=== PATIENT | male | born 1970 | race Caucasian/White ===

== ENCOUNTER 2018-01-27 06:48 | Day surgery (SDC) | payer MEDICARE ==
[~2018-01-27] VITALS: Ht 175.3 cm; Wt 81.6 kg
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
[~2018-01-27 06:48] MED LIST: DEPAKOTE250 MG PO; LIPITOR10 MG PO; PROPRANOLOL HCL20 MG PO
[2018-01-27 07:23] VITALS: BP 113/72; Ht 175.3 cm; Wt 81.6 kg
[2018-02-05 17:12] LABS: CALCULI - CA OXALATE MONOHYDR 35 % (()); CALCULI - CALCIUM PHOSPHATE 63 % (()); CALCULI - COLOR Brown (()); CALCULI - SIZE 7x7x2 mm (()); CALCULI - WEIGHT 86.6 mg (())
== END 2018-01-27 11:10 | disposition home or self-care (01) ==
LOC: D.OPS 06:48 → D.PAN 09:00 → D.OPS 09:00 → D.PAN 12:30 → D.OPS 12:30
PROVIDERS: Urology
DX: N35.9 Urethral stricture, unspecified (principal); N21.0 Calculus in bladder; Z01.812 Encounter for preprocedural laboratory examination

== ENCOUNTER 2021-01-07 14:05 | Day surgery (SDC) | payer MEDICARE ==
[~2021-01-07] VITALS: Ht 175.3 cm; Wt 65.9 kg
--- NOTE | ~2021-01-07 | HEMODYNAMI ---
PATIENT:KANDACE GARCIA MEDICAL RECORD: [id number] : 70 LOCATION:[facility] ADMISSION DATE: 01/07/21 Generatedon:116:05 Patient name: KANDACE GARCIA Patient #: [id number] SSN: : Date of study: 01/07/2021 Page: Of Hemodynamic Procedure Report Patient Data Patient Demographics Procedure consent was obtained First Name: KANDACE Gender: Male Last Name: JOSE : 1970 Middle Initial: ALEX Age: 50 year(s) Patient #: [id number] Race: Unknown Additional ID: [id number] Contact details [address]: [address] [place] [address] [place] State: [place] City: [place] Zip code: [address] Past Medical History Allergies: No known allergies Admission Admission Data Admission Date: 01/07/2021 Admission Time: 14:05 Procedure Procedure Types Cath Procedure Peripheral Cath Diagnostic Procedure Nephro Nephrostomy Tubes Procedure Description Procedure Date Procedure Date: 01/07/2021 Procedure Start Time: 15:42 Procedure Staff Name Function Ryan Kramer MD Performing Physician Katelynn Bill RT Cook House Supervisor Bigg Larsen RT Scrub Letty Chew RN Nurse Procedure Data Cath Procedure Fluoroscopy Diagnostic fluoroscopy Total fluoroscopy Time: 4.2 time: 4.2 min min Diagnostic fluoroscopy Total fluoroscopy dose: 42 dose: 42 mGy mGy Contrast Material Contrast Material Type Amount (ml) Isovue 300 15 Diagnostic catheters Device Type Used For End Catheter Placement Merit Impress KA 2 5Fr 40CM catheter ([id number]) Procedure Medications Medication Administration Route Dosage Fentanyl I.V. 100 mcg Lidocaine 1% added to field 20 Heparin Flush Bag added to field 2 bags (1000units/500ml NS) unlisted medication 1 Hemodynamics Rest Heart Rate: 127 (bpm) Snapshots Pre Cath Intra NCS Post Cath Vital Signs Time Heart Resp SPO2 etCO2 NIBP Rhythm Pain Sedation Rate (ipm) (%) (mmHg) (mmHg) Status Level (bpm) 15:38:39 126 30 0 115/53(90) NSR 0 (11) 10(A) , No pain 15:42:41 126 33 0 108/77(86) NSR 0 (11) 10(A) , No pain 15:47:40 127 16 100 15.6 Measuring NSR 0 (11) 10(A) , No pain 15:47:44 128 16 100 17.1 104/65(72) NSR 0 (11) 10(A) , No pain 15:51:52 123 32 100 20.1 102/68(83) NSR 0 (11) 10(A) , No pain 15:56:00 125 30 100 21.6 98/62(74) NSR 0 (11) 10(A) , No pain 15:59:59 116 27 17.1 103/64(77) NSR 0 (11) 10(A) , No pain 16:03:59 126 33 0 110/72(91) NSR 0 (11) 10(A) , No pain Medications Time Medication Route Dose Verified Delivered Reason Notes Effe ctiveness by by 15:49:00 Fentanyl I.V. 100 Ryan Saenz for back mcg Jeevan Kramer RN pain MD 15:49:15 Lidocaine 1% added 20ml Ryan Davis for local to vial Nia Kramer MD anesthetic field 15:49:29 Heparin Flush added 2 Ryan Davis used for Bag to bags Nia Kramer MD procedure (1000units/500ml field NS) 15:59:07 cefepime ivpb 1gm Ryan Saenz Per Jeevan Kramer RN physician MD Procedure Log Time Note 14:52:35 KIT, INTRODUCER ACCUSTICK II W/C ([id number]) opened to sterile field. 14:52:41 Use device set IR Diagnostic 14:52:43 Tegaderm 4 x 4 (1626W) opened to sterile field. 14:52:44 Sterile Angiographic Pack opened to sterile field. 14:52:45 Bag Decanter () opened to sterile field. 14:52:51 - 15::40 Time tracking: Regular hours (M-F 7:00 - 5:00) 15::47 Plan of Care:Hemodynamics will remain stable., Cardiac rhythm will remain stable., Comfort level will be maintained., Respiratory function will remain adequate., Patient/ family verbilizes understanding of procedure., Procedure tolerated without complication., Recovers from procedure without complications.. 15:29:02 Patient received from Outpatients to IR Alert and oriented. Tansferred to table in Prone position. 15:29:06 Signed procedure consent form obtained from patient. 15:29:13 H&P Date Dictated: 01/07/2021 Emergent; H&P N/A, H&P Addendum completed by physician on day of procedure. (MUST COMPLETE FOR ALL OUTPATIENTS). 15:29:16 Pre-procedure instructions explained to patient. 15:29:16 Pre-op teaching completed and patient verbalized understanding. 15:29:18 Family unavailable. 15:29:21 Patient NPO since Midnight. 15:29:30 Patient allergic to No known allergies 15:29:38 Is the patient allergic to Iodine/contrast media? No. 15:29:42 Is patient on blood thinner?No 15:29:44 Patient diabetic? No. 15:29:54 - 15:29:55 ----Pre-sedation anethsthesia assessment.---- 15:29:58 Previous problem with sedation/anesthesia? No ? 15:30:03 Snore? Yes 15:30:05 Sleep apnea? No 15:30:07 Deviated septum? No 15:30:09 Opens mouth fully? Yes 15:30:11 Sticks out tongue? Yes 15:30:19 Airway obstruction? No ? 15:30:24 Dentures? No ? 15:30:26 - 15::39 Right Renal was prepped with chlora-prep and draped in sterile fashion. 15:31:40 Alarms reviewed by Jeancarlos Fuentes 15:31:45 - 15:36:29 GLIDE CATHETER 5FR ANGLED 65cm (CG507) opened to sterile field. 15:37:22 Baseline sample Acquired. 15:37:30 Vital chart was started 15:41:17 Physician arrived 15:41:18 --------ALL STOP TIME OUT------ 15:41:19 Final Timeout: patient, procedure, and site verified with staff and physician. All members of the team are in agreement. 15:42:16 Fire Safety Assessment: A--An alcohol-based skin anteseptic being used preoperatively., C--Open oxygen or nitrous oxide is being used. 15:42:23 Procedure started. 15:42:23 Full Disclosure recording started 15:42:39 Local anesthetic to Right Renal area with Lidocaine 1% by Ryan Kramer MD.INITIAL ACCESS ONLY 15:42:54 GLIDE WIRE ANGLE 180cm (GC7696) opened to sterile field. 15:43:03 Micropuncture VSI 4FR kit opened to sterile field. 15:44:57 BENTSON 145cm wire ([id number]) opened to sterile field. 15:46:42 A Merit Impress KA 2 5Fr 40CM catheter ([id number]) was advanced over the wire and used for . 15:46:44 GLIDE WIRE Angled Super Stiff 180cm (RT1549) opened to sterile field. 15:47:37 Baseline sample Acquired. 15:49:00 Fentanyl 100 mcg I.V. was administered by Letty Chew RN; for back pain; Verbal order read back and verified. 15:49:15 Lidocaine 1% 20ml vial added to field was administered by Ryan Kramer MD; for local anesthetic; Verbal order read back and verified. 15:49:29 Heparin Flush Bag (1000units/500ml NS) 2 bags added to field was administered by Ryan Kramer MD; used for procedure; Verbal order read back and verified. 15:53:55 BAG, DRAINAGE EMPTY 600ML W/DEVANG (XEN574) opened to sterile field. 15:53:56 Abscession 8Fr drainage catheter ([id number]) opened to sterile field. 15:54:12 STOPCOCK 3-Way Large Bore (M71022) opened to sterile field. 15:57:21 SUTURE ETHILON 2-0 BLK MONO FS opened to sterile field. 15:58:35 Procedure ended.(Physican Out) 15:58:49 Fluoroscopy time 04.20 minutes. 15:58:54 Fluoroscopy dose: 42 mGy 15:58:54 Flurop Dose total: 42 15:59:03 Contrast amount:Isovue 300 15ml. 15:59:06 Procedure and supply charges have been captured, reviewed, submitted an d are correct. 15:59:07 cefepime 1gm ivpb was administered by Letty Chew RN; Per physician; Verbal order read back and verified. 16:04:28 Report given to Outpatients. 16:05:04 Vital chart was stopped Device Usage Item Name Manufacture Quantity Catalog Hospital Part Current Minim al Lot# / Number Charge Number Stock Stock Serial# Code [facility] [id number] [id number] 104242 5 INTRODUCER Scientific ACCUSTICK II W/C ([id number]) Tegaderm 4 x 3M 1 1626W 916617 596824 608903 5 4 (1626W) Sterile Cardinal 1 [id number] 211659 039507 5 Angiographic Health Pack Bag Decanter Microtek 1 2001S 008656 17387 765369 5 (2001S) Medical Inc. GLIDE Terumo 1 CG507 188600 375259 5 CATHETER 5FR ANGLED 65cm (CG507) GLIDE WIRE Terumo 1 BU7344 872487 648525 525207 5 ANGLE 180cm (PF4614) Micropuncture VSI VASCULAR 1 7266V 767766 547122 5 VSI 4FR kit SOLUTIONS BENTSON 145cm [facility] 1 N19450 743809 939763 5 wire (I36688) Merit Impress [facility] 1 [id number] 067889 624032 5 KA 2 5Fr 40CM catheter ([id number]) GLIDE WIRE Terumo 1 EM0098 388947 477700 5 Angled Super Stiff 180cm (LH1952) BAG, DRAINAGE [facility] 1 TIW066 330545 493203 368595 5 EMPTY 600ML W/DEVANG (OXQ346) Abscession Angiodynamics 1 [id number] 859166 384677 833842 5 8Fr drainage catheter ([id number]) [facility] Y19616 261072 1246 189875 [id number] 3-Way Large Bore (A92267) SUTURE Ethicon 1 664H 936974 093769 5 ETHILON 2-0 BLK MONO FS Signature Audit Orrum Stage Time Signature Unsigned Intra-Procedure 01/07/2021 Katelynn Bill 4:04:59 PM RT(R) [facility] [address] [place] [address]
[2021-01-07 14:29] LABS: HEMATOCRIT 29.7 % (42.0-54.0); HEMOGLOBIN 9.1 g/dL (13.5-17.5); MCH 26.7 pg (26.0-34.0); MCHC 30.6 g/dL (31.0-37.0); MCV 87.1 fL (80.0-100.0); MEAN PLATELET VOLUME 9.8 fL (7.4-10.4); PLATELET COUNT 899 10x3/uL (130-400); RBC 3.41 10x6/uL (4.20-6.10); RDW 16.3 % (11.5-14.5); WBC 55.8 10x3/uL (4.8-10.8)
[2021-01-07 14:53] LABS: APTT 28.1 SECONDS (22.8-39.4); INR 1.15 (0.85-1.17); PROTIME 13.6 SECONDS (11.6-15.0)
[2021-01-07 15:04] LABS: EOSINOPHILS 2 % (0-7); LYMPHOCYTES 12 % (15-50); NEUTROPHILS 85 % (40-80); PLATELET ESTIMATE INCREASED
[2021-01-07 15:12] LABS: ANION GAP 19.7 mmol/L (8-16); CARBON DIOXIDE 16.8 mmol/L (21.0-32.0); CREATININE - SERUM 1.3 mg/dL (0.6-1.3); POTASSIUM - SERUM 4.5 mmol/L (3.5-5.1)
[2021-01-07 15:16] VITALS: BP 94/46; Ht 175.3 cm; Wt 65.9 kg
== END 2021-01-07 17:40 | disposition other institution (70) ==
LOC: D.SP 14:05
PROVIDERS: ATTEND General Practice
DX: C67.9 Malignant neoplasm of bladder, unspecified (principal); N13.5 Crossing vessel and stricture of ureter without hydronephrosis

== ENCOUNTER 2021-01-07 17:43 | Inpatient (IN) | payer MEDICARE ==
[2021-01-07] VITALS (8 sets, daily range): BP systolic 85–117; BP diastolic 43–76; BMI 21.4
[~2021-01-07] VITALS: Ht 175.3 cm; Wt 65.8 kg
--- NOTE | 2021-01-07 16:10 | NUR ---
ARABELLA AMOS RN IN ROOM, GIVING REPORT, ARABELLA SPEAKS WITH PATIENT AND MOTHER, REPORTS THAT DR SOTOMAYOR RECOMMENDS PATIENT BE SEEN IN ER AFTER RECOVERING HERE IN OUTPATIENT FOR AN HOUR. ARABELLA STATES THAT DR SOTOMAYOR FEELS IT IS UP TO PATIENT AND MOTHER BUT THAT DUE TO HIGH HEART RATE AND ELEVATED WBC'S HE WOULD RECOMMEND BEING SEEN IN EMERGENCY ROOM TONIGHT. PATIENT AND MOTHER AGREEABLE TO THIS PLAN
--- NOTE | 2021-01-07 17:40 | NUR ---
TRANSFERRED BY WHEELCHAIR TO ER TRIAGE
--- NOTE | 2021-01-07 18:18 | NUR ---
DR. BAÑUELOS AT BEDSIDE.
[2021-01-07 19:22] LABS: CALC OSMOLALITY 265 mosm/kg (275-300); CALCIUM 8.4 mg/dL (8.5-10.1); CARBON DIOXIDE 18.7 mmol/L (21.0-32.0); CHLORIDE - SERUM 102 mmol/L (98-107); CREATININE - SERUM 1.1 mg/dL (0.6-1.3); GLUCOSE 96 mg/dL (74-106); SODIUM 132 mmol/L (136-145); UREA NITROGEN 16 mg/dL (7-18); eGFR NON AFRICAN AMERICAN 75 mL/min (90-120)
[2021-01-07 19:27] LABS: BASOPHILS 0.2 % (0-2); HEMATOCRIT 45.2 % (42.0-54.0); HEMOGLOBIN 13.8 g/dL (13.5-17.5); IMMATURE GRANULOCYTES 0.5 % (0-5); LYMPHOCYTES 14.4 % (15-50); MCH 26.5 pg (26.0-34.0); MCHC 30.5 g/dL (31.0-37.0); MCV 86.9 fL (80.0-100.0); MEAN PLATELET VOLUME 10.1 fL (7.4-10.4); MONOCYTES 9.2 % (2-11); NEUTROPHIL ABS# 16.96 10x3/uL (1.78-5.38); NEUTROPHILS 73.7 % (40-80); PLATELET COUNT 410 10x3/uL (130-400); RDW 16.4 % (11.5-14.5)
[2021-01-07 19:28] LABS: ALBUMIN 1.5 g/dL (3.4-5.0); ALKALINE PHOSPHATASE 153 U/L (30-120); ALT (SGPT) 39 U/L (10-68); BILIRUBIN - TOTAL 0.42 mg/dL (0.2-1.3); LDH 116 U/L (85-227); MAGNESIUM - SERUM 1.7 mg/dL (1.8-2.4); PHOSPHOROUS 1.8 mg/dL (2.5-4.9); PROTEIN - SERUM 6.5 g/dL (6.4-8.2); VALPROIC ACID (DEPAKOTE) 17.4 ug/mL (50.0-100.0)
[2021-01-07 19:32] LABS: POTASSIUM - SERUM 3.5 mmol/L (3.5-5.1)
--- NOTE | 2021-01-07 20:15 | NUR ---
REPORT RECEIVED, PT A&O, UP IN BED WITH FAMILY AT BEDSIDE. NO S/S OF DISTRESS OBSERVED. RR EVEN & UNLABORED ON RA. BED LOCKED AND LOWERED, CL IN REACH. WILL CONT POC.
--- NOTE | 2021-01-07 20:16 | NUR ---
FLUIDS COMPLETE. PT NEP BAG EMPTIED AT THIS TIME 300ML RED/PINK URINE UA SENT TO LAB
--- NOTE | 2021-01-07 23:03 | NUR ---
PTS TEMP 100.3. 650MG OF TYLENOL GIVEN.
[2021-01-08] VITALS (7 sets, daily range): BP systolic 100–114; BP diastolic 49–70; Ht 175.3 cm; Wt 65.8 kg
[2021-01-08 01:49] LABS: BILIRUBIN NEGATIVE (NEGATIVE); KETONE NEGATIVE (NEGATIVE); NITRITE NEGATIVE (NEGATIVE); UROBILINOGEN NORMAL mg/dL (< 2)
[2021-01-08 01:50] LABS: BACTERIA MODERATE HPF (NONE SEEN); SQUAMOUS EPITHELIAL 0-5 HPF (0-4)
[2021-01-08 05:02] LABS: BASOPHILS 0.1 % (0-2); EOSINOPHILS 2.8 % (0-7); HEMATOCRIT 25.5 % (42.0-54.0); HEMOGLOBIN 7.7 g/dL (13.5-17.5); LYMPHOCYTE ABS# 3.49 10x3/uL (1.32-3.57); LYMPHOCYTES 8.7 % (15-50); MCH 26.6 pg (26.0-34.0); MCHC 30.2 g/dL (31.0-37.0); MCV 88.2 fL (80.0-100.0); MEAN PLATELET VOLUME 10.3 fL (7.4-10.4); MONOCYTES 9.9 % (2-11); NEUTROPHIL ABS# 31.15 10x3/uL (1.78-5.38); NEUTROPHILS 77.5 % (40-80); PLATELET COUNT 851 10x3/uL (130-400); RBC 2.89 10x6/uL (4.20-6.10); RDW 16.6 % (11.5-14.5); WBC 40.2 10x3/uL (4.8-10.8)
[2021-01-08 05:23] LABS: ALBUMIN 1.3 g/dL (3.4-5.0); ALKALINE PHOSPHATASE 153 U/L (30-120); ALT (SGPT) 37 U/L (10-68); BILIRUBIN - TOTAL 0.44 mg/dL (0.2-1.3); CALC OSMOLALITY 269 mosm/kg (275-300); CALCIUM 8.2 mg/dL (8.5-10.1); CARBON DIOXIDE 18.8 mmol/L (21.0-32.0); CHLORIDE - SERUM 104 mmol/L (98-107); CREATININE - SERUM 1.1 mg/dL (0.6-1.3); GLUCOSE 78 mg/dL (74-106); MAGNESIUM - SERUM 1.7 mg/dL (1.8-2.4); POTASSIUM - SERUM 3.2 mmol/L (3.5-5.1); SODIUM 135 mmol/L (136-145); UREA NITROGEN 14 mg/dL (7-18); eGFR NON AFRICAN AMERICAN 75 mL/min (90-120)
--- NOTE | 2021-01-08 07:40 | NUR ---
PT LAYING IN BED RESTING COMFORTABLE, DENIES PAIN AT THIS TIME, WATER GIVEN, CALL LIGHT IN REACH, WILL MONITOR
--- NOTE | 2021-01-08 12:00 | NUR ---
PIV LEAKING, NEW PIV STARTED IN RIGHT HAND 22G, FLUSHES WITH EASE
--- NOTE | 2021-01-08 15:00 | NUR ---
BROTHER AT BEDSIDE
--- NOTE | 2021-01-08 17:47 | NUR ---
pt sleeping, no distress noted, call light in reach, will monitor
--- NOTE | 2021-01-08 22:24 | NUR ---
Pt resting in bed and watching TV, no acute distress noted. Pt's nephro bag was drained and the patient was given a snack per request, call light in reach, bed in low position. Assessment and vitals per flow sheet, meds per MAR, Pt denies any needs at this time.
[2021-01-09 05:03] VITALS: BP 120/91
[2021-01-09 07:32] LABS: RBC 2.64 10x6/uL (4.20-6.10); WBC 28.8 10x3/uL (4.8-10.8)
[2021-01-09 07:36] LABS: HEMATOCRIT 22.8 % (42.0-54.0); HEMOGLOBIN 6.9 g/dL (13.5-17.5); LYMPHOCYTE ABS# 2.46 10x3/uL (1.32-3.57); MCH 26.1 pg (26.0-34.0); MCHC 30.3 g/dL (31.0-37.0); MCV 86.4 fL (80.0-100.0); NEUTROPHIL ABS# 22.01 10x3/uL (1.78-5.38); PLATELET COUNT 830 10x3/uL (130-400); RDW 16.7 % (11.5-14.5)
[2021-01-09 07:49] LABS: ALBUMIN 1.2 g/dL (3.4-5.0); ALKALINE PHOSPHATASE 117 U/L (30-120); ALT (SGPT) 36 U/L (10-68); BILIRUBIN - TOTAL 0.22 mg/dL (0.2-1.3); CALCIUM 7.6 mg/dL (8.5-10.1); CARBON DIOXIDE 17.8 mmol/L (21.0-32.0); CHLORIDE - SERUM 106 mmol/L (98-107); CREATININE - SERUM 0.9 mg/dL (0.6-1.3); GLUCOSE 99 mg/dL (74-106); MAGNESIUM - SERUM 1.7 mg/dL (1.8-2.4); PROTEIN - SERUM 5.5 g/dL (6.4-8.2); SODIUM 134 mmol/L (136-145); eGFR NON AFRICAN AMERICAN > 90 mL/min (90-120)
[2021-01-09 08:00] VITALS: BP 116/62
[2021-01-09 08:10] LABS: PHOSPHOROUS 1.6 mg/dL (2.5-4.9)
[2021-01-09 08:13] LABS: CALC OSMOLALITY 266 mosm/kg (275-300); POTASSIUM - SERUM 3.3 mmol/L (3.5-5.1); UREA NITROGEN 9 mg/dL (7-18)
[2021-01-09] MEDS ORDERED: LISINOPRIL10 MG PO (12:21)
[2021-01-09] MEDS ORDERED: OMNICEF300 MG PO (12:21)
[2021-01-09 14:06] LABS: EOSINOPHILS 10 % (0-7); LYMPHOCYTES 11 % (15-50); MONOCYTES 14 % (2-11); NEUTROPHILS 56 % (40-80)
[2021-01-09 14:07] LABS: ANISOCYTOSIS OCC; PLATELET ESTIMATE INCREASED; ROULEAUX OCC
--- NOTE | 2021-01-09 16:43 | NUR ---
PATIENT'S SECOND UNIT OF BLOOD HAS COMPLETED.
--- NOTE | 2021-01-09 16:45 | NUR ---
NURSE CALLED BROTHER TO COME AND PICK HIM UP.
--- NOTE | 2021-01-09 18:00 | NUR ---
NURSE REVIEWS DC INSTRUCTIONS WITH PATIENT'S BROTHER. IV DC , PRESSURE APPLIED. NO PROBLEMS NOTED.; NURSE TAKES PATIENT TO PRIVATE VEHICLE WHERE BROTHER DRIVES HIM HOME.
--- NOTE | 2021-01-09 18:19 | MORECARE ---
CASE MANAGEMENT DISCHARGE SUMMARY PATIENT: KANDACE GARCIA UNIT: [id number] ADM DATE: 01/07/21 AGE: 50 : 70 SEX: M ROOM/BED: D.2109 AUTHOR: CLAUDIA LION PHYSICIAN: REFERRING PHYSICIAN: MARIAELENA HANNA MD DATE OF SERVICE: 01/09/21 Case Management Discharge Planning Summary DCP REVIEW SUMMARY ANTICIPATED D/C DATE: EXPECTED LOS : CASE STATUS: DCP Initiated INITIAL REVIEW: 01/07/2021 INITIAL REVIEWER: Holly Nelson FINAL DISCHARGE DISPOSITION: 50 : In-Home Hospice Care FINAL REVIEWER: Holly Nelson FINAL REVIEW DATE: 01/09/2021 DCP Focus Questions & Answers DCP Screen QUESTION: ANSWER High Risk Factors: : Hosp related to CHF, COPD, DM, End Stage Ds, CVA, CA DCP Evaluation QUESTION: ANSWER Patient's ability to cope with chronic illness : d. No chronic illness Would patient like to participate in any Care Coordination programs (if applicable): : Not applicable Mental health screen: : No mental health history DCP Re-evaluation QUESTION: ANSWER Would patient like to participate in any Care Coordination programs (if applicable): : Not applicable PATIENT: KANDACE GARCIA ENCOUNTER: [id number] MEDICAL RECORD#: [id number] ADMISSION DATE: 01/07/2021 DISCHARGE DATE: 01/09/2021 ATTENDING MD: MARIAELENA GALLEGOS : AGE: 50 MARITAL STATUS: S DC PLAN ID: [id number] FACILITY: [facility] PRINTED ON: 01/09/21 18:19 CT All edits/amendments must be made on the electronic document DICTATION DATE: 01/09/211818 PHARMACEUTICAL PROCESS ENGINEER: DM 01/09/211818 RPT#: [id number] DC DATE:01/09/21 STATUS: DIS IN [facility] [address] [place] [address] END OF REPORT
--- NOTE | 2021-01-09 18:31 | MORECARE ---
CASE MANAGEMENT DISCHARGE SUMMARY PATIENT: KANDACE MEADOWS UNIT: [id number] ADM DATE: 01/07/21 AGE: 50 : 70 SEX: M ROOM/BED: D.2107 AUTHOR: CLAUDIA LION PHYSICIAN: REFERRING PHYSICIAN: MARIAELENA HANNA MD DATE OF SERVICE: 01/09/21 Case Management Discharge Planning Summary DCP REVIEW SUMMARY ANTICIPATED D/C DATE: EXPECTED LOS : CASE STATUS: DCP Initiated INITIAL REVIEW: 01/07/2021 INITIAL REVIEWER: Holly Nelson FINAL DISCHARGE DISPOSITION: 50 : In-Home Hospice Care FINAL REVIEWER: Holly Nelson FINAL REVIEW DATE: 01/09/2021 DCP Focus Questions & Answers DCP Screen QUESTION: ANSWER High Risk Factors: : Hosp related to CHF, COPD, DM, End Stage Ds, CVA, CA DCP Evaluation QUESTION: ANSWER Patient and/or caregiver agree upon recommended discharge plan? : Yes Patient gives permission to discuss discharge plans with: (name, relationship and number) : Deana Meadows - mother - [phone] Patient's ability to cope with chronic illness : c. Inadequate (3+ ED visits in 6 mos., readmits within 30 days, 2+ hospital admissions in 1 yr.) Alternate discharge plan (if recommended plan not agreed upon by patient and/or caregiver): : [facility] Family / Caregiver's ability to cope with chronic illness: : a. Adequate (ability to meet patient's medical needs, ensures patient attends medical appts.) Physical Status: : Partial care dependence Equipment needed for post hospitalization: : Hospital Bed Living Arrangements: : Home with Parents Baseline cognitive status: : *Oriented to person, place, situation, time and present Medication Management: : Patient states can afford medications Planned post hospital services available for patient? : Yes Planned post hospital services covered by insurance plan? : Yes Does Patient have transportation to get home and to follow-up medical appointments when discharged from the hospital? : Yes Would patient like to participate in any Care Coordination programs (if applicable): : Not applicable Does the patient have electricity at home? : Yes Does the patient have running water in their house? : Yes Mental health screen: : No mental health history DCP Re-evaluation QUESTION: ANSWER Would patient like to participate in any Care Coordination programs (if applicable): : Not applicable PATIENT: KANDACE MEADOWS ENCOUNTER: [id number] MEDICAL RECORD#: [id number] ADMISSION DATE: 01/07/2021 DISCHARGE DATE: 01/09/2021 ATTENDING MD: MARIAELENA GALLEGOS : AGE: 50 MARITAL STATUS: S DC PLAN ID: [id number] FACILITY: [facility] PRINTED ON: 01/09/21 18:30 CT All edits/amendments must be made on the electronic document DICTATION DATE: 01/09/211829 TECHNICIAN ASSISTANT: OREN 01/09/211829 RPT#: [id number] DC DATE:01/09/21 STATUS: DIS IN [facility] [address] [place] [address] END OF REPORT
--- NOTE | 2021-01-09 19:12 | MORECARE ---
CASE MANAGEMENT DISCHARGE SUMMARY PATIENT: KANDACE MEADOWS UNIT: [id number] ADM DATE: 01/07/21 AGE: 50 : 70 SEX: M ROOM/BED: D.2107 AUTHOR: AMISHA,DOC PHYSICIAN: REFERRING PHYSICIAN: MARIAELENA HANNA MD DATE OF SERVICE: 01/09/21 Case Management Discharge Planning Summary COMMENTS ENTERED DATE: 01/09/21 18:20 CT COMMENT TYPE: Discharge Planning REVIEWER: Holly Nelson Late Entry 01/08/21 CM spoke with patient and his brother regarding discharge planning needs. Patient and his brother along with his oncologist Ramses Sommers @ [facility] all agree for Hospice Care. Patient states that he wants [facility] and [facility] completed. CM called and spoke with intake with [facility] and faxed referral. 01/09/21 CM received a call from Ming Park at [facility] and she stated that they have accepted patient and can admit today. She has spoke with family and DME equipment is being delivered. CM explained that he can discharge post transfusion today. Patient's family will transport him home via private vehicle. CM will continue to follow and assist as needed DCP REVIEW SUMMARY ANTICIPATED D/C DATE: EXPECTED LOS : CASE STATUS: DCP Initiated INITIAL REVIEW: 01/07/2021 INITIAL REVIEWER: Holly Nelson FINAL DISCHARGE DISPOSITION: 50 : In-Home Hospice Care FINAL REVIEWER: Holly Nelson FINAL REVIEW DATE: 01/09/2021 DCP Focus Questions & Answers DCP Screen QUESTION: ANSWER High Risk Factors: : Hosp related to CHF, COPD, DM, End Stage Ds, CVA, CA DCP Evaluation QUESTION: ANSWER Patient and/or caregiver agree upon recommended discharge plan? : Yes Patient gives permission to discuss discharge plans with: (name, relationship and number) : Deana Meadows - mother - [phone] Patient's ability to cope with chronic illness : c. Inadequate (3+ ED visits in 6 mos., readmits within 30 days, 2+ hospital admissions in 1 yr.) Alternate discharge plan (if recommended plan not agreed upon by patient and/or caregiver): : [facility] Family / Caregiver's ability to cope with chronic illness: : a. Adequate (ability to meet patient's medical needs, ensures patient attends medical appts.) Physical Status: : Partial care dependence Equipment needed for post hospitalization: : Hospital Bed Living Arrangements: : Home with Parents Baseline cognitive status: : *Oriented to person, place, situation, time and present Medication Management: : Patient states can afford medications Planned post hospital services available for patient? : Yes Planned post hospital services covered by insurance plan? : Yes Does Patient have transportation to get home and to follow-up medical appointments when discharged from the hospital? : Yes Would patient like to participate in any Care Coordination programs (if applicable): : Not applicable Does the patient have electricity at home? : Yes Does the patient have running water in their house? : Yes Mental health screen: : No mental health history DCP Re-evaluation QUESTION: ANSWER Would patient like to participate in any Care Coordination programs (if applicable): : Not applicable PATIENT: KANDACE MEADOWS ENCOUNTER: [id number] MEDICAL RECORD#: [id number] ADMISSION DATE: 01/07/2021 DISCHARGE DATE: 01/09/2021 ATTENDING MD: MARIAELENA GALLEGOS : AGE: 50 MARITAL STATUS: S DC PLAN ID: [id number] FACILITY: [facility] PRINTED ON: 01/09/21 19:12 CT All edits/amendments must be made on the electronic document DICTATION DATE: 01/09/211911 MULTIPLE TUBE WINDING MACHINE OPERATOR: OREN 01/09/211911 RPT#: [id number] DC DATE:01/09/21 STATUS: DIS IN [facility] [address] [place] [address] END OF REPORT
--- NOTE | 2021-01-11 12:47 | MORECARE ---
CASE MANAGEMENT DISCHARGE SUMMARY PATIENT: KANDACE MEADOWS UNIT: [id number] ADM DATE: 01/07/21 AGE: 51 : 70 SEX: M ROOM/BED: D.2107 AUTHOR: AMISHA,DOC PHYSICIAN: REFERRING PHYSICIAN: MARIAELENA HANNA MD DATE OF SERVICE: 01/11/21 Case Management Discharge Planning Summary COMMENTS ENTERED DATE: 01/09/21 18:20 CT COMMENT TYPE: Discharge Planning REVIEWER: Holly Nelson Late Entry 01/08/21 CM spoke with patient and his brother regarding discharge planning needs. Patient and his brother along with his oncologist Ramses Sommers @ [facility] all agree for Hospice Care. Patient states that he wants [facility] and [facility] completed. CM called and spoke with intake with [facility] and faxed referral. 01/09/21 CM received a call from Ming Park at [facility] and she stated that they have accepted patient and can admit today. She has spoke with family and DME equipment is being delivered. CM explained that he can discharge post transfusion today. Patient's family will transport him home via private vehicle. CM will continue to follow and assist as needed DCP REVIEW SUMMARY ANTICIPATED D/C DATE: EXPECTED LOS : CASE STATUS: DCP Initiated INITIAL REVIEW: 01/07/2021 INITIAL REVIEWER: Holly Nelson FINAL DISCHARGE DISPOSITION: 50 : In-Home Hospice Care FINAL REVIEWER: Holly Nelson FINAL REVIEW DATE: 01/09/2021 DCP Focus Questions & Answers DCP Screen QUESTION: ANSWER High Risk Factors: : Hosp related to CHF, COPD, DM, End Stage Ds, CVA, CA DCP Evaluation QUESTION: ANSWER Patient and/or caregiver agree upon recommended discharge plan? : Yes Patient's ability to cope with chronic illness : c. Inadequate (3+ ED visits in 6 mos., readmits within 30 days, 2+ hospital admissions in 1 yr.) Patient gives permission to discuss discharge plans with: (name, relationship and number) : Deana Meadows - mother - [phone] Alternate discharge plan (if recommended plan not agreed upon by patient and/or caregiver): : [facility] hospice Family / Caregiver's ability to cope with chronic illness: : a. Adequate (ability to meet patient's medical needs, ensures patient attends medical appts.) Physical Status: : Partial care dependence Equipment needed for post hospitalization: : Hospital Bed Living Arrangements: : Home with Parents Baseline cognitive status: : *Oriented to person, place, situation, time and present Medication Management: : Patient states can afford medications Planned post hospital services available for patient? : Yes Planned post hospital services covered by insurance plan? : Yes Does Patient have transportation to get home and to follow-up medical appointments when discharged from the hospital? : Yes Would patient like to participate in any Care Coordination programs (if applicable): : Not applicable Does the patient have electricity at home? : Yes Does the patient have running water in their house? : Yes Mental health screen: : No mental health history DCP Re-evaluation QUESTION: ANSWER Would patient like to participate in any Care Coordination programs (if applicable): : Not applicable PATIENT: KANDACE MEADOWS ENCOUNTER: [id number] MEDICAL RECORD#: [id number] ADMISSION DATE: 01/07/2021 DISCHARGE DATE: 01/09/2021 ATTENDING MD: MARIAELENA GALLEGOS : AGE: 51 MARITAL STATUS: S DC PLAN ID: [id number] FACILITY: [facility] PRINTED ON: 01/11/21 12:47 CT All edits/amendments must be made on the electronic document DICTATION DATE: 01/11/211246 [address] PATROL COMMANDER: OREN 01/11/21 124 RPT#: [id number] DC DATE:01/09/21 STATUS: DIS IN [facility] [address] [place] [address] END OF REPORT
== END 2021-01-09 18:08 | disposition hospice, home (50) | DRG 872 ==
LOC: D.ER 17:43 → D.M2 19:51
PROVIDERS: Emergency Medicine; ADMIT Emergency Medicine; ATTEND Emergency Medicine
PROC: 0T25X0Z Change Drainage Device in Kidney, External Approach (ICD-10-PCS; principal; 2021-01-07)
DX: A41.9 Sepsis, unspecified organism (principal); N39.0 Urinary tract infection, site not specified; C41.9 Malignant neoplasm of bone and articular cartilage, unspecified; C91.10 Chronic lymphocytic leukemia of B-cell type not having achieved remission; C79.11 Secondary malignant neoplasm of bladder; R64 Cachexia; T83.9XXA Unspecified complication of genitourinary prosthetic device, implant and graft, initial encounter; R62.7 Adult failure to thrive; Z68.21 Body mass index [BMI] 21.0-21.9, adult; J44.9 Chronic obstructive pulmonary disease, unspecified; E78.5 Hyperlipidemia, unspecified; D50.9 Iron deficiency anemia, unspecified; C67.9 Malignant neoplasm of bladder, unspecified; D63.0 Anemia in neoplastic disease; K21.9 Gastro-esophageal reflux disease without esophagitis; S06.9X6S Unspecified intracranial injury with loss of consciousness greater than 24 hours without return to pre-existing conscious level with patient surviving, sequela; Z87.820 Personal history of traumatic brain injury; N13.5 Crossing vessel and stricture of ureter without hydronephrosis